=== PATIENT | male | born 1985 | race Caucasian/White ===

== ENCOUNTER 2020-04-26 09:54 | Emergency (ER) | payer SELFPAY ==
--- NOTE | 2020-04-26 09:57 | XR_ITS ---
WS: [id number] PORTABLE CHEST HISTORY: chest pain COMPARISON: 09/04/2018 Lungs are clear and well expanded. No pleural effusion or pneumothorax. Cardiac size: Normal. Mediastinum/Aorta: Normal mediastinum. No osseous abnormality seen. XR/XR chest 1V portable [id number] IMPRESSION: Unremarkable portable chest.
[2020-04-26 10:06] VITALS: BMI 24.4
[2020-04-26 10:08] VITALS: BP 142/89; PULSE 109; RESP 20; TEMP 36.6; O2SAT 94
--- NOTE | 2020-04-26 10:14 | W.ED.SOB ---
HPI - SOB/Dyspnea General: Chief Complaint: Shortness of Breath/Dyspnea Stated Complaint: hurts to breathe/feels generally bad Time Seen by Provider: 04/26/20 10:00 Source: patient Mode of arrival: ambulatory Limitations: no limitations History of Present Illness: HPI Narrative: Patient is a 34-year-old male who presents to ED today with a complaint of feeling like shit . He tells me over the past week he has intermittently felt like he had no energy and could not get any air . He states he does have a productive cough. Patient is an every day smoker but states the cough seems to be different than his normal smoker's cough. He states over the past 2 days he has been having increased fatigue, sleeping more, having body aches, states that his bones hurt, and complained of a sore throat yesterday. He is also had a few episodes of nonbloody diarrhea. He does not complain of nausea, vomiting, or abdominal pain. He has not had any known fevers. Denies sick contacts. Timing: intermittent (constant over the past two days) Exacerbating factors: nothing Relieving factors: nothing Associated symptoms: Reports chest congestion; Deny abdominal pain, chest pain, fever(s), hemoptysis, lightheadedness, nausea, orthopnea, palpitations, syncope or vomiting Review of Systems Const: Reports: body aches, fatigue and malaise; Denies: fever(s) or chills Eyes: Denies: change in vision, blurry vision, photophobia, floaters or seeing flashes ENMT: Reports: throat pain (yesterday-gone now) and odynophagia (yesterday-gone now); Denies: enlarged tonsils, ear or mastoid pain, ear discharge, change in hearing, tinnitus, nasal congestion or sinus pain Card: Denies: chest pain, palpitations, irregular heart rhythm, edema, swelling of feet/ankles, lightheadedness, syncope, pre-syncope, dyspnea on exertion or orthopnea Resp: Reports: dyspnea, productive cough and chest congestion; Denies: pain on inspiration or hemoptysis GI: Reports: diarrhea; Denies: abdominal pain, nausea or vomiting : Denies: flank pain, difficulty urinating, dysuria, urinary frequency, urinary urgency or urinary hesitancy Musc: Denies: neck pain or back pain Skin/Breast: Denies: rash Neuro: Denies: headache(s), numbness in extremities, weakness in extremities or sensory changes [facility] ED PFSH: Social History (Updated 04/26/20 @ 10:11 by Janis Zhu RN) Smoking and tobacco status: current every day smoker Physical Exam Const: COMMON NORMALS: no acute distress, average body habitus, patient oriented x3, no limitations, healthy appearing, alert and well nourished ORIENTATION/CONSCIOUSNESS: Yes oriented to person, Yes oriented to place and Yes oriented to time HENMT: COMMON NORMALS: normocephalic and atraumatic HEAD & SCALP: normocephalic and atraumatic Chest: COMMONS NORMALS: normal inspection of the chest and normal palpation of entire chest wall Resp: COMMON NORMALS: normal respiratory effort and clear to auscultation bilaterally AUSCULTATION: clear to auscultation bilaterally Cardio: COMMON NORMALS: regular rate and regular rhythm RATE: regular rate RHYTHM: regular rhythm GI: COMMON NORMALS: Normal to inspection, nondistended, normoactive bowel sounds present, Soft to palpation, non-tender, No hepatosplenomegaly present and no masses PALPATION: Yes Soft to palpation and Yes No hepatosplenomegaly present Extremity: COMMON NORMALS: normal to inspection Neuro: AUDRA COMA SCALE: document GCS findings Audra coma scale eye opening: Spontaneous Republic coma scale verbal response: Orientated Republic coma scale motor response: Obey commands Republic coma scale total score: 15 COMMON NORMALS: patient oriented x3, moves all extremities, no focal motor deficits, no sensory deficits noted and gait normal SENSORIUM/ORIENTATION: Yes alert, Yes oriented to person, Yes oriented to place and Yes oriented to time Skin: COMMON NORMALS: no rashes or lesions noted GENERAL SKIN EXAM: no rashes or lesions noted Course Vital Signs: Vital signs: Vital Signs Temperature 97.9 F 04/26/20 10:08 Pulse Rate 92 04/26/20 12:28 Respiratory Rate 16 04/26/20 12:28 Blood Pressure 146/77 04/26/20 12:28 Pulse Oximetry 96 04/26/20 12:28 MDM - SOB/Dyspnea MDM Narrative: Medical decision making narrative: Patient clinically appears well. Upon arrival he was mildly tachycardic however this is resolved. Labs are non-concerning at this time. He does have mildly elevated LFTs. He does tell me he is an every day drinker (sometimes heavily) and also has a history of hepatitis C. CXR is normal. Influenza is negative. Based on symptoms I do have a suspicion for COVID. He did have testing for this. Recommend quarantine until COVID results return. Strict return to ED precautions given. Lab Data: Labs: Lab Results 04/26/20 04/26/20 04/26/20 Range/Units 10:25 10:25 11:10 WBC 10.1 H (4.0-10.0) 10^3/ uL RBC 5.06 (4.1-5.3) 10^6/u L Hgb 16.0 (11.7-16.6) g/dL Hct 48.8 (42.0-52.0) % MCV 96.4 H (80-94) fL MCH 31.6 (28.0-34.0) pg MCHC 32.8 (30.0-36.0) g/dL RDW 13.7 (12.1-15.1) % Plt Count 215 (130-400) 10^3/c mm MPV 9.2 (7.4-10.4) fL Neut % (Auto) 73.7 % Lymph % (Auto) 19.0 % Kingfisher % (Auto) 5.9 % Eos % (Auto) 0.6 % Baso % (Auto) 0.3 % Neut # (Auto) 7.46 (1.8-7.7) 10^3/u L Lymph # (Auto) 1.9 (0.8-4.8) 10^3/u L Kingfisher # (Auto) 0.6 (0.2-0.9) 10^3/u L Eos # (Auto) 0.1 (0.0-0.8) 10^3/u L Baso # (Auto) 0.0 (0.0-0.1) 10^3/u L Nucleated RBC % (a uto) 0 % Nucleated RBCs # 0.0 /100WBC Sodium 138 (136-145) mmol/L Potassium 3.8 (3.5-5.1) mmol/L Chloride 103 (98-107) mmol/L Carbon Dioxide 26 (22-29) mmol/L Anion Gap 12.8 (5-19) BUN 10 (6-20) mg/dL Creatinine 0.8 (0.7-1.2) mg/dL GFR Calculation 110.0 (90-130) mL/min Glucose 146 H (65-115) mg/dL Calculated Osmolal ity 285 (285-295) mOsm/k g Calcium 8.9 (8.5-10.5) mg/dL Total Bilirubin 0.6 (0.15-1.2) mg/dL AST 85 H (0-40) U/L ALT 89 H (0-41) U/L Alkaline Phosphata se 75 (40-130) IU/L Total Protein 7.4 (6.6-8.7) g/dL Albumin 4.4 (3.5-5.2) g/dL Globulin 3.0 (1.3-4.6) g/dL Influenza Type A A g Negative (Negative) Influenza Type B A g Negative (Negative) Imaging Data^: CXR: Radiologist's impression: [address] [address] XRay Report Signed Patient: Adebayo Palma Unit #: [id number] : 06/03/1965 Age/Sex: 54 / M ADM Date: 04/26/20 Loc: ER Room/Bed: Attending Dr: Ordering Provider/Ordering MD: Alberto Dela Cruz DO Date of Service: 04/26/20 Procedure(s): XR chest 1V portable [id number] Accession Number(s): [id number] Report Number: [id number] WS: [id number] PORTABLE CHEST HISTORY: dyspnea/cough COMPARISON: 03/10/2019 Lungs are clear and well expanded. No pleural effusion or pneumothorax. Cardiac size: Normal. Mediastinum/Aorta: Normal mediastinum. No osseous abnormality seen. XR/XR chest 1V portable [id number] IMPRESSION: Unremarkable portable chest. Dictated By: Lynnette Wang DO Signed By: Lynnette Wang DO Signed Date/Time: 04/26/20 1054 DD/ 105 Discharge Plan Discharge Patient Disposition: Home, Self-Care Clinical Impression: Suspected COVID-19 virus infection Condition: Stable Prescriptions: No Action No Known Home Medications RF: 0 Discharge Orders: Discharge Order (Routine); Ordered 04/26/20 Ordered By: Ranjana Solis Referrals: GONZALO Degroot, HOSPITAL SUPERVISOR [Primary Care Provider] - Activity Restrictions/Additional Instructions: As discussed they will contact you if your COVID testing is positive. If you have not heard back in 3 days please contact medical records for your results. Continue to quarantine until you get results back. Return to the emergency department for worsening shortness of breath, difficulty breathing, severe cough, uncontrollable fevers, or any other concerns you may have. Stand Alone Forms: Work/School Release Coding Level of Care Code ED [employer] for [employer] Fwd Exam Comprehensive
[2020-04-26 10:37] VITALS: BP 142/88; PULSE 105; RESP 16; O2SAT 96
[2020-04-26 10:39] LABS: Basophils % 0.3 %; Eosinophils # 0.1 10^3/uL (0.0-0.8); Eosinophils % 0.6 %; Hematocrit 48.8 % (42.0-52.0); Lymphocytes # 1.9 10^3/uL (0.8-4.8); Mean Corpuscular HGB Conc 32.8 g/dL (30.0-36.0); Mean Corpuscular Hemoglobin 31.6 pg (28.0-34.0); Mean Corpuscular Volume 96.4 fL (80-94); Mean Platelet Volume 9.2 fL (7.4-10.4); Monocytes # 0.6 10^3/uL (0.2-0.9); Monocytes % 5.9 %; Neutrophils # 7.46 10^3/uL (1.8-7.7); Neutrophils % 73.7 %; Nucleated Red Blood Cells % 0 %; Platelet Count 215 10^3/cmm (130-400); Red Blood Count 5.06 10^6/uL (4.1-5.3); Red Cell Distribution Width 13.7 % (12.1-15.1); White Blood Count 10.1 10^3/uL (4.0-10.0)
[2020-04-26] MEDS: acetaminophen 500 mg Tablet 1000 MG PO (10:43)
[2020-04-26] MEDS: sodium chloride 0.9% 1,000 ML 999 ML IV (10:43)
[2020-04-26 11:01] LABS: Alanine Aminotransferase 89 U/L (0-41); Albumin Level 4.4 g/dL (3.5-5.2); Alkaline Phosphatase 75 IU/L (40-130); Anion Gap 12.8 (5-19); Aspartate Amino Transferase 85 U/L (0-40); Blood Urea Nitrogen 10 mg/dL (6-20); Calcium 8.9 mg/dL (8.5-10.5); Carbon Dioxide 26 mmol/L (22-29); Chloride 103 mmol/L (98-107); Glucose 146 mg/dL (65-115); Osmolality Calculated 285 mOsm/kg (285-295); Potassium 3.8 mmol/L (3.5-5.1); Sodium 138 mmol/L (136-145); Total Bilirubin 0.6 mg/dL (0.15-1.2); Total Protein 7.4 g/dL (6.6-8.7)
[2020-04-26 11:37] VITALS: BP 136/62; PULSE 105; RESP 16; O2SAT 96
[2020-04-26 12:16] LABS: Influenza A by IFA Negative (Negative); Influenza B by IFA Negative (Negative)
[2020-04-26 12:28] VITALS: BP 146/77; PULSE 92; RESP 16; O2SAT 96
[2020-04-26 12:41] VITALS: BP 146/78; PULSE 100; RESP 16; TEMP 36.4; O2SAT 98
[2020-04-28 00:16] LABS: Quest SARS-CoV-2 RNA NOT DETECTED (NOT DETECTED)
--- NOTE | 2020-04-28 09:00 | PC.NURSE ---
Attempted to call pt to notify of negative COVID test, no voicemail set up.
--- NOTE | 2020-04-28 10:44 | PC.NURSE ---
Pt notified of negative COVID test.
== END 2020-04-26 12:43 | disposition home or self-care (01) ==
PROVIDERS: Emergency Provider Physician Assistant; PCP Nurse Practitioner Family
DX: R06.02 Shortness of breath (principal); F17.210 Nicotine dependence, cigarettes, uncomplicated
CPT/HCPCS: 12345; 36415; 71045; 80053; 85025; 87635; 87804; 96360; 99283; J7030

== ENCOUNTER 2021-07-20 17:34 | Emergency (ER) | payer SELFPAY ==
[2021-07-20 18:16] VITALS: BP 123/77; PULSE 122; RESP 22; TEMP 36.4; O2SAT 95; BMI 24.5
--- NOTE | 2021-07-20 18:22 | XRR_ITS ---
PROCEDURE INFORMATION: Exam: XR Right Shoulder Exam date and time: 07/20/2021 6:22 PM Age: 35 years old Clinical indication: Injury or trauma; Other: Crush injury; Work related; Crushing; Shoulder; Left; Additional info: Left shoulder injury TECHNIQUE: Imaging protocol: XR Right shoulder. Views: 2 or more views. COMPARISON: CR XR chest 1V portable [id number] 04/26/2020 10:26 AM FINDINGS: Bones/joints: Normal. Soft tissues: Normal. XR/XR shoulder RT min 2V* [id number] IMPRESSION: Negative for fracture or dislocation Radiation Dose CTDIVOL = (mGy): DLP = (mGy-cm)
--- NOTE | 2021-07-20 20:08 | ED_ITS ---
HPI - Extremity Problem General: Chief complaint: Extremity Injury, Upper Stated complaint: l shoulder injury Time Seen by Provider: 07/20/21 19:54 History of Present Illness: HPI Narrative: Patient is a 35-year-old male comes to the ED with right shoulder pain. Patient is a rhic systems safety engineer and says about 4 days ago he was working at his job in a long kicked back and hit the front part of his shoulder. He has now been having pain in his right shoulder with any abduc tion of the arm. Says the pain is, constant aching pain located in the posterior aspect of the shoulder. Shoots down his right shoulder down his arm. He also has some episodes of some numbness and tingling in the arm as well. He has tried applying heat or cold pack on shoulder to help with symptoms and he says the ice pack did help. Associated symptoms: Deny chest pain, fever(s) or rash Review of Systems Const: Denies: fever(s), chills or fatigue Eyes: Denies: change in vision or eye discomfort ENMT: Denies: throat pain, odynophagia, nasal discharge or nasal congestion Card: Denies: chest pain, palpitations, edema, swelling of feet/ankles, dyspnea on exertion or orthopnea Resp: Denies: dyspnea, productive cough or non-productive cough GI: Denies: abdominal pain, nausea, vomiting, diarrhea, constipation or hematochezia : Denies: flank pain, difficulty urinating, dysuria or hematuria Musc: Reports: extremity pain (right shoulder) and limited range of motion (right shoulder); Denies: neck pain, back pain or extremity swelling Skin/Breast: Denies: rash or new lesions Neuro: Denies: headache(s), numbness in extremities or weakness in extremities [facility] ED PFSH: Social History Smoking and tobacco status: current every day smoker Physical Exam Const: COMMON NORMALS: no acute distress, patient oriented x3 and alert GENERAL APPEARANCE: cooperative; not comfortable (Patient appears uncomfortable and in some pain.) HENMT: COMMON NORMALS: normocephalic HEAD & SCALP: normocephalic MOUTH: Normal oral and palatal mucosa present THROAT: posterior oropharynx normal and uvula midline Neck/C-Spine: COMMON NORMALS: supple GENERAL: Yes normal visual inspection Resp: COMMON NORMALS: normal respiratory effort, No retractions, No use of accessory muscles and clear to auscultation bilaterally AUSCULTATION: clear to auscultation bilaterally Cardio: COMMON NORMALS: regular rate, regular rhythm, S1 normal heart sound present, S2 normal heart sound present, No gallops present (Cardio), No clicks p resent (Cardio), No murmurs present (Cardio) and Peripheral pulses 2+ throughout RATE: regular rate RHYTHM: regular rhythm HEART SOUNDS: S1 normal heart sound present and S2 normal heart sound present PERIPHERAL PULSES: Peripheral pulses 2+ throughout GI: COMMON NORMALS: Normal to inspection, nondistended, normoactive bowel sounds present, Soft to palpation, non-tender and no masses PALPATION: Yes Soft to palpation : COMMON NORMALS: Yes no CVA tenderness BLADDER/KIDNEY EXAM: Yes no CVA tenderness Back/Pelvis: COMMON NORMALS: no CVA tenderness Extremity: COMMON NORMALS: no pedal edema GENERAL: Yes normal exam except as noted RIGHT UPPER EXTREMITY: Yes shoulder joint (Moderate tenderness when palpating posterior shoulder and scapular region.) Right shoulder: Yes Right shoulder joint inspection exam (No deformity noted.), Yes palpation, Yes Right shoulder joint ROM exam (Limited with abduction of arm due to pain) and Yes Right shoulder joint neurovascular exam (Intact) Neuro: COMMON NORMALS: patient oriented x3 and moves all extremities SENSORIUM/ORIENTATION: Yes alert Skin: GENERAL SKIN EXAM: dry skin Course Vital Signs: Vital signs: Vital Signs Temperature 97.6 F 07/20/21 18:16 Pulse Rate 70 07/20/21 20:41 Respiratory Rate 18 07/20/21 20:41 Blood Pressure 123/77 07/20/21 18:16 Pulse Oximetry 95 07/20/21 18:16 MDM - Extremity (Nontraumatic) MDM Narrative: Medical decision making narrative: Patient is a 35-year-old male comes to the ED with right shoulder injury at work. Patient appears in some pain and discomfort with his right shoulder. He has pain and limited range of motion especially when abducting the arm. Tenderness to palpation over the posterior aspect of right shoulder and scapular region. Neurovascular tact. Right shoulder x-ray showed no acute fractures or dislocations seen. Due to patient's injury and exam findings in place in order with case management for patient to follow-up with orthopedic doctor for further evaluation. He was put in a shoulder sling and discharged home with a prescription for ibuprofen 800 and muscle relaxants. He was told that manager of case management will contact him in the next several days to set up an appoint with orthopedic doctor for further evaluation. Return ED precautions given. Patient understood agree with plan. Imaging Data^: Xray Ortho: Attestation: I personally reviewed and interpreted this imaging study as follows: Radiologist's impression: [address] [address] XRay Report Signed Patient: Golden Palma Unit #: [id number] : 1985 Age/Sex: 35 / M ADM Date: 07/20/21 Loc: ER Room/Bed: Attending Dr: Ordering Provider/Ordering MD: Italo Vincent Date of Service: 07/20/21 Procedure(s): XR shoulder RT min 2V* [id number] Accession Number(s): [id number] Report Number: [id number] PROCEDURE INFORMATION: Exam: XR Right Shoulder Exam date and time: 07/20/2021 6:22 PM Age: 35 years old Clinical indication: Injury or trauma; Other: Crush injury; Work related; Crushing; Shoulder; Left; Additional info: Left shoulder injury TECHNIQUE: Imaging protocol: XR Right shoulder. Views: 2 or more views. COMPARISON: CR XR chest 1V portable [id number] 04/26/2020 10:26 AM FINDINGS: Bones/joints: Normal. Soft tissues: Normal. XR/XR shoulder RT min 2V* [id number] IMPRESSION: Negative for fracture or dislocation Radiation Dose CTDIVOL = (mGy): DLP = (mGy-cm) Dictated By: Alexis Barrientos MD Signed By: Alexis Barrientos MD Signed Date/Time: 07/20/212021 DD/ 21 Discharge Plan Discharge Patient Disposition: Home Clinical Impression: Injury of shoulder, right Qualifiers: Encounter type: initial encounter Qualified Code(s): S49.91XA - Unspecified injury of right shoulder and upper arm, initial encounter Condition: Stable Prescriptions: New ibuprofen 800 mg tablet 800 mg PO Q8H PRN (Reason: pain) Qty: 30 RF: 0 cyclobenzaprine 10 mg tablet 10 mg PO BID PRN (Reason: muscle spasm) Qty: 20 RF: 0 No Action No Known Home Medications RF: 0 Discharge Orders: Discharge ED (Routine); Ordered 07/20/21 Ordered By: Italo Vincent Discharge Diet: Regular Discharge Activity: Limit activity as instructed Patient Instructions: Shoulder Pain (ED) Activity Restrictions/Additional Instructions: Follow-up with medical provider as directed. Case management will be contacting you in the next several days to set up an appoint with orthopedic doctor for evaluation of shoulder. Wear shoulder sling to allow your shoulder to rest. It is important to take your arm out of sling a couple times a day to do some shoulder range of motion exercises to prevent shoulder freeze. Take medications as prescribed. Apply cold pack on shoulder to help with symptoms as well. Return to the ER or your medical provider if condition worsens. Please read and understand discharge instructions. Thank you for choosing [facility] for your healthcare needs today. Pl ease realize this is an emergency room and that we are providing you with a medical screening exam and this may not be complete and all inclusive of all the testing and or work up that you may need to determine your ailment or severity of your illness. It is very important that you follow up as instructed or that you return to the Emergency Department should you have concerns or if your condition changes or worsens in any way. Coding Level of Care Code ED Event Representative for Dotty Faith Exam Comprehensive
[2021-07-20 20:41] VITALS: PULSE 70; RESP 18
--- NOTE | 2021-07-25 09:54 | DCPLANNER ---
Addendum entered by Cynthia Olivier 10/29/21 12:05: Patient had a follow up appointment scheduled with ortho - patient did not attend appointment. Original Note: manager ccu had message to schedule a follow up appointment for patient with ortho. manager ccu called the ortho clinic, spoke with Blanche, gave clinic patients information. manager ccu was told that patients information would be printed and reviewed. Clinic will call patient with appointment information.
== END 2021-07-20 20:42 | disposition home or self-care (01) ==
PROVIDERS: Emergency Provider Physician Assistant
DX: S49.91XA Unspecified injury of right shoulder and upper arm, initial encounter (principal); F17.210 Nicotine dependence, cigarettes, uncomplicated; W20.8XXA Other cause of strike by thrown, projected or falling object, initial encounter
CPT/HCPCS: 73030; 99282

== ENCOUNTER 2024-10-16 22:16 | Emergency (ER) | payer MEDICAID, SELFPAY ==
[2024-10-16 22:17] VITALS: BP 122/81; PULSE 103; RESP 18; TEMP 36.6; O2SAT 96; BMI 22.3
--- NOTE | 2024-10-16 22:45 | CTR_ITS ---
PROCEDURE INFORMATION: Exam: CT Cervical Spine Without Contrast Exam date and time: 10/16/2024 11:08 PM Age: 39 years old Clinical indication: Injury or trauma; Fall; Blunt trauma TECHNIQUE: Imaging protocol: Computed tomography of the cervical spine without contrast. Radiation optimization: All CT scans at this facility use at least one of these dose optimization techniques: automated exposure control; mA and/or kV adjustment per patient size (includes targeted exams where dose is matched to clinical indication); or iterative reconstruction. COMPARISON: CT cervical spin wo con* [id number] 03/07/2019 9:05 PM RADIATION DOSE METRICS: Total DLP (mGy-cm): 1584.88 FINDINGS: Bones: No acute fracture. No traumatic listhesis. Multilevel degenerative disc disease. No severe spinal canal narrowing. Lungs: Lung apices are normal. Soft tissues: Unremarkable. CT/CT cervical spin wo con* [id number] IMPRESSION: No acute cervical spine findings.
--- NOTE | 2024-10-16 22:45 | XRR_ITS ---
PROCEDURE INFORMATION: Exam: XR Left Hip Exam date and time: 10/16/2024 10:57 PM Age: 39 years old Clinical indication: Injury or trauma; Fall; Blunt trauma (contusions or hematomas); Left; Hip; Additional info: Fall/one view pelvis too please TECHNIQUE: Imaging protocol: Radiologic exam of the left hip. Views: 2 or 3 views hip with pelvis when performed. COMPARISON: CT abdomen pelvis w con* [id number] 01/06/2019 12:45 PM FINDINGS: Bones/joints: Unremarkable. No acute fracture. Soft tissues: Unremarkable. XR/XR hip LT 2-3V wo/w pel* [id number] IMPRESSION: No acute findings.
--- NOTE | 2024-10-16 22:45 | CTR_ITS ---
PROCEDURE INFORMATION: Exam: CT Thoracic Spine Without Contrast Exam date and time: 10/16/2024 11:10 PM Age: 39 years old Clinical indication: Injury or trauma; Fall; Blunt trauma (contusions or hematomas); Additional info: Fall/trauma TECHNIQUE: Imaging protocol: Computed tomography of the thoracic spine without contrast. Radiation optimization: All CT scans at this facility use at least one of these dose optimization techniques: automated exposure control; mA and/or kV adjustment per patient size (includes targeted exams where dose is matched to clinical indication); or iterative reconstruction. COMPARISON: CT cervical spin wo con* [id number] 10/16/2024 11:08 PM RADIATION DOSE METRICS: Total DLP (mGy-cm): 803.88 FINDINGS: Bones/joints: There is normal alignment of the thoracic spine without fracture or subluxation. There is minimal anterior and marginal osteophyte formation throughout the thoracic spine. No definitive significant neural foraminal or canal narrowing. Soft tissues: Unremarkable. Lungs: The visualized lungs demonstrates minimal bibasilar subsegmental atelectasis. CT/CT thoracic spin wo con* [id number] IMPRESSION: No acute abnormality. Mild degenerative changes.
--- NOTE | 2024-10-16 22:45 | CTR_ITS ---
PROCEDURE INFORMATION: Exam: CT Lumbar Spine Without Contrast Exam date and time: 10/16/2024 11:17 PM Age: 39 years old Clinical indication: Injury or trauma; Fall; Blunt trauma (contusions or hematomas); Additional info: Fall/trauma TECHNIQUE: Imaging protocol: Computed tomography of the lumbar spine without contrast. Radiation optimization: All CT scans at this facility use at least one of these dose optimization techniques: automated exposure control; mA and/or kV adjustment per patient size (includes targeted exams where dose is matched to clinical indication); or iterative reconstruction. COMPARISON: CT lumbar spine wo con* [id number] 01/06/2019 12:41 PM RADIATION DOSE METRICS: Total DLP (mGy-cm): 464.42 FINDINGS: Bones/joints: There is normal alignment of the lumbar spine without fracture or acute subluxation. There is a broad-based disc bulge at L5-S1 associated with moderate right neural foraminal narrowing. There is a broad disc bulge at L4-L5 with mild bilateral neural foraminal narrowing. There is a broad disc bulge at L3-L4 associated with mild bilateral neural foraminal narrowing. Soft tissues: Unremarkable. CT/CT lumbar spine wo con* [id number] IMPRESSION: No acute abnormality. Mild degenerative changes.
--- NOTE | 2024-10-16 22:45 | XRR_ITS ---
PROCEDURE INFORMATION: Exam: XR Chest Exam date and time: 10/16/2024 10:55 PM Age: 39 years old Clinical indication: Injury or trauma; Fall; Blunt trauma (contusions or hematomas) TECHNIQUE: Imaging protocol: Radiologic exam of the chest. Views: 1 view. COMPARISON: CR XR chest 1V portable [id number] 04/26/2020 10:26 AM FINDINGS: Lungs: Unremarkable. No consolidation. Pleural spaces: Unremarkable. No pleural effusion. No pneumothorax. Heart/Mediastinum: Unremarkable. No cardiomegaly. Bones/joints: Unremarkable. XR/XR chest 1V portable [id number] IMPRESSION: No acute findings.
--- NOTE | 2024-10-16 22:46 | CTR_ITS ---
PROCEDURE INFORMATION: Exam: CT Head Without Contrast Exam date and time: 10/16/2024 11:04 PM Age: 39 years old Clinical indication: Injury or trauma; Fall; Blunt trauma (contusions or hematomas) TECHNIQUE: Imaging protocol: Computed tomography of the head without contrast. Radiation optimization: All CT scans at this facility use at least one of these dose optimization techniques: automated exposure control; mA and/or kV adjustment per patient size (includes targeted exams where dose is matched to clinical indication); or iterative reconstruction. COMPARISON: CT head wo con* [id number] 09/04/2018 12:41 AM RADIATION DOSE METRICS: Total DLP (mGy-cm): 1220.45 FINDINGS: Brain: No hemorrhage. No mass effect or midline shift. No significant white matter disease. Cerebral ventricles: No ventriculomegaly. Paranasal sinuses: Visualized sinuses are unremarkable. No fluid levels. Mastoid air cells: Visualized mastoid air cells are well aerated. Bones: Unremarkable. No acute fracture. Soft tissues: Unremarkable. CT/CT head wo con* [id number] IMPRESSION: No acute intracranial findings.
--- NOTE | 2024-10-16 22:46 | W.ED.FALL ---
HPI - Fall General: Chief Complaint: Fall Stated Complaint: Fall down stairs Time Seen by Provider: 10/16/24 22:21 Source: patient Mode of arrival: EMS Limitations: no limitations History of Present Illness: Patient is a 39-year-old male presents to ED today following a fall. He arrives via EMS in a c-collar. He states he was helping a friend move and slipped on some ice located on a set of stairs. Patient states he fell and did have positive LOC. He states when he came to he was surrounded by emergency personnel. Upon arrival to the emergency department he is complaining of pain around his left hip and groin. He is having back pain. Reports some mild left rib discomfort. No shortness of breath or difficulty breathing or painful inspiration. Has not noticed any lacerations or scalp hematomas. MD complaint: fall Onset (ago): hour(s) Fall from: down stairs (#) Fall witnessed: yes, by bystander Loss of consciousness: Yes Length of LOC: minutes(s) Symptoms prior to fall: none Context: tripped/slipped Location of injury: head, neck and back Severity: moderate Associated symptoms-after fall: Reports chest pain (L rib pain) and neck pain; Denies abdominal pain, headache(s), hematuria or lightheadedness Related Data Home Medications Medication Instructions Recorded Confirmed No Known Home Medications 04/26/20 04/26/20 Previous Rx's Medication Instructions Recorded cyclobenzaprine 10 mg tablet 10 mg PO BID PRN muscle spasm #20 07/20/21 tabs ibuprofen 800 mg tablet 800 mg PO Q8H PRN pain #30 tabs 07/20/21 Allergies Allergy/AdvReac Type Severity Reaction Status Date / Time No Known Allergies Allergy Verified 04/26/20 10:11 Review of Systems Eyes: Denies: change in vision, blurry vision, photophobia, eye discharge, floaters or seeing flashes ENMT: Denies: throat pain, odynophagia, ear or mastoid pain, ear discharge, nasal discharge, epistaxis or sinus pain Card: Reports: chest pain (L rib pain); Denies: palpitations, lightheadedness, syncope or pre-syncope Resp: Denies: dyspnea or pain on inspiration GI: Denies: abdominal pain : Denies: flank pain or hematuria Musc: Reports: neck pain, back pain and joint pain; Denies: extremity pain or joint swelling Neuro: Denies: headache(s), numbness in extremities, weakness in extremities, sensory changes or dizziness PFSH ED PFSH: Social History Smoking and tobacco/nicotine status: current every day tobacco/nicotine user Physical Exam Const: COMMON NORMALS: no acute distress, average body habitus, patient oriented x3, no limitations, healthy appearing, alert and well nourished GENERAL APPEARANCE: cooperative ORIENTATION/CONSCIOUSNESS: Yes awake, Yes oriented to person, Yes oriented to place and Yes oriented to time HENMT: COMMON NORMALS: normocephalic, atraumatic and TM's normal bilaterally HEAD & SCALP: normal to inspection, normocephalic and atraumatic; no Dacosta's sign, no hematoma and no raccoon eyes FACE & SINUS: normal facial exam TYMPANIC MEMBRANE: TM's normal bilaterally MOUTH: other (no intraoral injuries noted) Eye: COMMON NORMALS: Equal, round and reactive pupils present and EOMs intact bilaterally GENERAL EYE: appearance normal, both eyes and all related structures and normal light reflex PUPIL: Yes Equal, round and reactive pupils present DIRECT OPHTHALMOSCOPY: Yes normal light reflex Neck/C-Spine: COMMON NORMALS: full ROM GENERAL: Yes normal visual inspection CERVICAL SPINE: Yes Cervical spine tenderness, No step off deformity and No Paracervical muscle tenderness OTHER: pt arrives in c-collar; this was not removed for ROM testing Chest: COMMONS NORMALS: normal inspection of the chest and normal palpation of entire chest wall Resp: COMMON NORMALS: normal respiratory effort and clear to auscultation bilaterally AUSCULTATION: clear to auscultation bilaterally Cardio: COMMON NORMALS: regular rate and regular rhythm RATE: regular rate RHYTHM: regular rhythm GI: COMMON NORMALS: Normal to inspection, nondistended, normoactive bowel sounds present, Soft to palpation, non-tender, No hepatosplenomegaly present and no masses INSPECTION: Yes normal to inspection and No abdominal wall ecchymosis AUSCULTATION: Yes normoactive bowel sounds PALPATION: Yes Soft to palpation and Yes No hepatosplenomegaly present Back/Pelvis: COMMON NORMALS: thoracic and lumbar spine normal to inspection THORACIC SPINE/UPPER BACK: Yes thoracic spinal tenderness LUMBAR SPINE/LOWER BACK: Yes lumbar spinal tenderness PELVIS: Yes buttocks normal SACRUM: no tenderness COCCYX: no tenderness Extremity: COMMON NORMALS: normal to inspection and capillary refill normal GENERAL: Yes normal exam except as noted LEFT LOWER EXTREMITY: Yes hip joint Left hip: Yes inspection (normal gross inspection), Yes palpation (TTP) and Yes neurovascular exam (normal) Neuro: AUDRA COMA SCALE: document [facility] findings [place] coma scale eye opening: Spontaneous Audra coma scale verbal response: Orientated Audra coma scale motor response: Obey commands Audra coma scale total score: 15 COMMON NORMALS: patient oriented x3, CN's II-XII intact bilaterally, moves all extremities, no focal motor deficits, no sensory deficits noted and gait normal SENSORIUM/ORIENTATION: Yes alert, Yes oriented to person, Yes oriented to place and Yes oriented to time SPEECH: speech normal GAIT: Yes Normal gait present Skin: COMMON NORMALS: no rashes or lesions noted GENERAL SKIN EXAM: no rashes or lesions noted TRAUMA: no lacerations or abrasions Course Vital Signs: Vital signs: Vital Signs Temperature 98 F 10/16/24 22:17 Pulse Rate 77 10/17/24 00:21 Respiratory Rate 20 H 10/17/24 00:20 Blood Pressure 134/78 10/17/24 00:21 Pulse Oximetry 97 10/17/24 00:21 Oxygen Delivery Me thod Room Air 10/17/24 00:21 MDM - Fall Medical Decision Making Patient here following a slip and fall on ice/stairs. CT scans as well as XRs here are all unremarkable. He was ambulatory here. Patient will be allowed discharge with return precautions. Otherwise we can follow-up with primary care in 1-2 weeks. Medical Records I reviewed the patient's medical records. Lab Data I reviewed the patient's lab results. Radiology Impressions Cervical Spine CT 10/16/24 22:45 IMPRESSION: No acute cervical spine findings. Chest X-Ray 10/16/24 22:45 IMPRESSION: No acute findings. Hip/Pelvis X-Ray 10/16/24 22:45 IMPRESSION: No acute findings. Lumbar Spine CT 10/16/24 22:45 IMPRESSION: No acute abnormality. Mild degenerative changes. Thoracic Spine CT 10/16/24 22:45 IMPRESSION: No acute abnormality. Mild degenerative changes. Head CT 10/16/24 22:46 IMPRESSION: No acute intracranial findings. All radiology interpretation(s) finalized by discharge Discharge Plan Discharge Patient Disposition: Home Clinical Impression: Fall from slipping on ice, Back contusion, Minor head injury with loss of consciousness, Contusion of left hip Condition: Stable Prescriptions: No Action ibuprofen 800 mg tablet 800 mg PO Q8H PRN (Reason: pain) Qty: 30 0RF cyclobenzaprine 10 mg tablet 10 mg PO BID PRN (Reason: muscle spasm) Qty: 20 0RF No Known Home Medications Discharge Orders: Discharge ED (Routine); Ordered 10/17/24 Ordered By: Ranjana Solis Activity Restrictions/Additional Instructions: You may use Tylenol and Motrin as well as ice and heat to help with any discomforts. I would like you to follow-up with primary care in 1 to 2 weeks for re-evaluation if symptoms are not improving. You may return to the emergency department at anytime for any further concerns you may have. I hope you begin to feel better soon. Coding Level of Care Code ED Community Support Professional for Dotty Faith
[2024-10-16 22:56] VITALS: BP 138/85; PULSE 92; O2SAT 94
[2024-10-17 00:20] VITALS: RESP 20
[2024-10-17] MEDS: ondansetron 2 mg/ML SDV 2 mL 4 MG IVP (00:20)
[2024-10-17] MEDS: morphine 4 mg/mL SDV 1 mL IVP (00:20)
[2024-10-17 00:21] VITALS: BP 134/78; PULSE 77; O2SAT 97
[2024-10-17 00:47] VITALS: BP 160/81; PULSE 88; O2SAT 96
== END 2024-10-17 00:49 | disposition home or self-care (01) ==
PROVIDERS: Emergency Provider Physician Assistant
DX: S30.0XXA Contusion of lower back and pelvis, initial encounter (principal); S09.8XXA Other specified injuries of head, initial encounter; S06.0X9A Concussion with loss of consciousness of unspecified duration, initial encounter; S70.02XA Contusion of left hip, initial encounter; Z72.0 Tobacco use; W00.1XXA Fall from stairs and steps due to ice and snow, initial encounter
CPT/HCPCS: 36415; 70450; 71045; 72125; 72128; 72131; 73502; 96374; 96375; 99285; J2270; J2405